=== PATIENT | male | born 2000 | race Caucasian/White ===

== ENCOUNTER 2022-05-14 06:29 | Emergency (ER) | payer OTHER ==
[~2022-05-14] VITALS: Ht 172.7 cm; Wt 59.0 kg
[2022-05-14] MEDS ORDERED: LORAZEPAM 2MG/ML CPJ IM STA (06:43)
[2022-05-14] MEDS ORDERED: OLANZAPINE 10 MG/VIAL IM ONE (06:45)
[2022-05-14] MEDS ORDERED: LORAZEPAM 2MG/ML CPJ IM NR (06:49)
[2022-05-14] MEDS ORDERED: OLANZAPINE 10 MG/VIAL IM NR (07:00)
[2022-05-14 07:49] LABS: BASOPHILS % 0.3 % (0.0-2.0); HEMATOCRIT. 40.3 % (42.0-52.0); HEMOGLOBIN. 13.8 g/dL (14.0-18.0); LYMPHOCYTES % 10.2 % (20.0-50.0); MEAN CORPUSCULAR HEMOGLOBIN 29.2 pg (28.0-32.0); MEAN CORPUSCULAR VOLUME 85.5 fL (80.0-94.0); MEAN PLATELET VOLUME 9.2 fl (7.4-10.4); MONOCYTES % 5.8 % (2.0-8.0); NEUTROPHILS % 83.7 % (40.0-76.0); PLATELET 192 x1000/uL (130-400); RED BLOOD CELL COUNT 4.71 mill/uL (4.7-6.1); RED CELL DISTRIBUTION WIDTH 13.6 % (11.6-14.6)
[2022-05-14 08:20] LABS: CLARITY URINE CLEAR (CLEAR); COLOR URINE YELLOW (YELLOW); KETONES URINE NEGATIVE (NEGATIVE); LEUKOCYTE ESTERASE URINE NEGATIVE (NEGATIVE); NITRITE URINE NEGATIVE (NEGATIVE); OCCULT BLOOD URINE 2+ (NEGATIVE); PROTEIN URINE NEGATIVE (NEGATIVE); SPECIFIC GRAVITY URINE 1.005 (1.005-1.030); UROBILINOGEN URINE 0.2 E.U./dL (0.2-1.0)
[2022-05-14 08:34] LABS: CHLORIDE 100 mEq/L (98-107)
[2022-05-14 08:42] LABS: ETHANOL BLOOD < 10 mg/dL
[2022-05-14 08:51] LABS: *AMPHETAMINES SCREEN URINE NEGATIVE (NEGATIVE); *BARBITURATES SCREEN URINE NEGATIVE (NEGATIVE); *BENZODIAZEPINES SCREEN URINE NEGATIVE (NEGATIVE); *COCAINE SCREEN URINE NEGATIVE (NEGATIVE); CANNABINOID URINE SCREEN PRESUMTIVE POSITIVE (NEGATIVE); METHADONE URINE SCREEN NEGATIVE (NEGATIVE); OPIATES URINE SCREEN NEGATIVE (NEGATIVE); PHENCYCLIDINE URINE SCREEN NEGATIVE (NEGATIVE)
[2022-05-14 11:15] VITALS: BP 118/60
== END 2022-05-14 11:41 ==
LOC: ER 06:45
DX: T40.711A Poisoning by cannabis, accidental (unintentional), initial encounter (principal); F12.129 Cannabis abuse with intoxication, unspecified; R45.1 Restlessness and agitation; Y92.018 Other place in single-family (private) house as the place of occurrence of the external cause; Z78.1 Physical restraint status
CPT/HCPCS: 36415; 80053; 80305; 80320; 81003; 85025; 99285; G0480